=== PATIENT | male | born 1950 | race Caucasian/White ===

== ENCOUNTER → 2016-08-25 | Outpatient (CLI) | payer OTHER ==
[~2016-08-25] MED LIST: ASPI-482 PO; MULT-245 PO; OMEP20CA5 PO
--- NOTE | 2016-08-25 17:03 | RAD ---
Bilateral knees, 6 views, 08/25/2016: History: Chronic knee pain. There is patchy bony demineralization. There is mild marginal spurring at the knee joints, worse on the right. There is mild degenerative change at the right patellofemoral articulation. No acute fracture or dislocation is identified. There is a suggestion of a small right knee joint effusion. IMPRESSION: 1. Mild degenerative change, right greater than left. 2. No acute bony abnormality is detected. 3. Probable small right knee joint effusion
== END | disposition home or self-care (01) ==
LOC: DXRADRC 14:54
PROVIDERS: ATTEND General Practice
DX: M25.562 Pain in left knee (principal); X58.XXXA Exposure to other specified factors, initial encounter; Y93.89 Activity, other specified; Y92.89 Other specified places as the place of occurrence of the external cause; Y99.8 Other external cause status
CPT/HCPCS: 73562

== ENCOUNTER 2017-12-21 17:20 | Inpatient (IN) | payer MEDICARE, OTHER ==
[~2017-12-21] VITALS: Ht 185.4 cm; Wt 86.9 kg
[2017-12-21 18:35] VITALS: BP 101/69
[2017-12-21] MEDS ORDERED: MULT1TAB90 PO (19:40)
[2017-12-21] MEDS ORDERED: MELA3TAB2 PO (19:40)
[2017-12-21] MEDS ORDERED: FOLI1TAB16 PO (19:40)
[2017-12-21] MEDS ORDERED: TAMS0.4C2 PO (19:40)
[2017-12-21] MEDS ORDERED: METO50TA6 PO (19:40)
[2017-12-21] MEDS ORDERED: DILT120C80 PO (19:40)
[2017-12-21] MEDS ORDERED: THIA100T8 PO (19:40)
[2017-12-21] MEDS: TAMSULOSIN 0.4 MG CAP.ER.24H. PO SCH (20:24)
[2017-12-21] MEDS: METOPROLOL TART IMMED RELEASE 50 MG TABLET PO SCH (20:25)
[2017-12-21] MEDS: ACETAMINOPHEN 325 MG TABLET PO PRN (20:25)
[2017-12-21] MEDS: MELATONIN 3 MG TABLET PO PRN ×2 (20:25→23:18)
[2017-12-22 06:30] VITALS: BP_SYST 111; BP_SYST 116; BP_DIAS 64; BP_DIAS 78
[2017-12-22] MEDS: MULTIVITAMIN with MINERAL TABLET. PO SCH (08:43)
[2017-12-22] MEDS: THIAMINE 100 MG TABLET. PO SCH (08:43)
[2017-12-22] MEDS: PANTOPRAZOLE 40 MG TABLET. PO SCH (08:43)
[2017-12-22] MEDS: ASPIRIN ENTERIC COATED 81 MG TABLET.DR. PO SCH (08:44)
[2017-12-22] MEDS: METOPROLOL TART IMMED RELEASE 50 MG TABLET PO SCH ×2 (08:58→20:10)
[2017-12-22] MEDS: FOLIC ACID 1 MG TABLET PO SCH (08:58)
--- NOTE | 2017-12-22 13:01 | HP ---
ADMIT DATE: 12/21/2017 HISTORY OF PRESENT ILLNESS: The patient is a 67-year-old male patient who was transferred from [facility] to swing bed at [facility] to continue the process of rehabilitation. The patient was admitted to [facility] and he was found to have chronic atrial fibrillation with rapid ventricular response, gait unsteady and alcohol withdrawal symptoms. He was treated with a Cardizem drip and then switched to oral Cardizem, was treated with alcohol withdrawal protocol, and apparently, he has been complaining of weakness and marked deconditioning. It was felt that the patient would benefit from further rehabilitation and therefore he was transferred to [facility] swing bed to continue the process of rehabilitation. When I saw him today, he did complain that he has sciatica on the right side. It comes and goes. Also, has back pain, but denied any other complaint. He stated he is very weak and is unable to walk on his own, although at home according to his significant other, he was able to ambulate without assistance or assistive devices. PAST MEDICAL HISTORY: Significant for atrial fibrillation, coronary artery disease, hypertension. He is known to have seizures, gastroesophageal reflux disease, prostate cancer, alcohol addiction, osteoarthritis. He has also sciatica and Dupuytren's contracture of the left hand. PAST SURGICAL HISTORY: Significant for right-sided cataract extraction, tonsillectomy, lower back surgery, hemorrhoidectomy, prostatectomy, left medial meniscectomy and right meniscectomy x 2. FAMILY HISTORY: Positive for Alzheimer's disease and cancer. SOCIAL HISTORY: He lives with his significant other. He quit smoking; however, he continued to drink heavily. He drinks 1 pint of vodka per day. He does not use any drugs. REVIEW OF SYSTEMS: The patient denied any blurring of vision. He has right-sided cataract extraction, but denied any glaucoma or macular degeneration. Denied any earache, tinnitus, or sensorineural deafness. Denied any nosebleeds, stuffy nose, or postnasal drip. Denied any sore throat, sore tongue, toothache, hoarseness of voice, difficulty swallowing. Denied any nausea, vomiting, diarrhea, or constipation. Denied any hematemesis, melena, or hematochezia. Denied any dysuria, frequency, or hematuria. Denied any chest pain, shortness of breath, orthopnea, or paroxysmal nocturnal dyspnea. Denied any cough, phlegm, or hemoptysis. ALLERGIES: He has no known drug allergies. MEDICATIONS: He is currently on diltiazem CD 240 mg once a day, thiamine 100 mg once a day, Protonix 40 mg once a day, folic acid 1 mg once a day, aspirin 81 mg once a day, multivitamin 1 tablet once a day, metoprolol tartrate 50 mg twice a day, Flomax 0.4 mg at bedtime, melatonin 3 mg at bedtime, and Tylenol 650 mg every 6 hours. PHYSICAL EXAMINATION: GENERAL: When I examined him, he was sitting comfortably in his wheelchair, in no apparent distress. There was no pallor, jaundice, cyanosis, lymphadenopathy, or thyromegaly. No jugular venous distention. No limb edema. VITAL SIGNS: His heart rate was 86, blood pressure 116/76, his temperature was 97.9, respiratory rate was 18, and oxygen saturation was 94%. HEAD, EYES, EARS, NOSE, AND THROAT: Showed normocephalic, atraumatic. NECK: Supple. HEART: Showed normal first and second heart sounds with no gallop, rub, or murmur. CHEST: Clear to auscultation. No crepitation or rhonchi. ABDOMEN: Slightly distended, soft, nontender. No guarding or rigidity. No organomegaly. All hernial orifice intact. Bowel sounds normal. NEUROLOGIC: He was awake, alert, responding appropriately. All cranial nerves intact. He moves extremities without difficulty, although he is mostly bedbound, chair bound. IMPRESSION AND PLAN: The patient has no lab work available that was done here; however, we will basically continue with all his medication. Continue with physical and occupational therapy. I will order his lab works and make any necessary adjustments if deemed necessary. CURT WATSON MD DR: ELINOR/jesica JOB#: [id number] / [id number]
[2017-12-22] MEDS: LORazepam 0.5 MG TABLET PO PRN ×2 (17:25→21:50)
[2017-12-22 18:59] VITALS: BP 90/65
[2017-12-22] MEDS: ACETAMINOPHEN 325 MG TABLET PO PRN (20:10)
[2017-12-22] MEDS: MELATONIN 3 MG TABLET PO PRN ×2 (20:10→21:50)
[2017-12-22] MEDS: TAMSULOSIN 0.4 MG CAP.ER.24H. PO SCH (20:10)
--- NOTE | 2017-12-23 05:47 | RAD ---
EXAM: CT HEAD WITHOUT CONTRAST. HISTORY: Altered mental status. TECHNIQUE: Computed tomography of the head was performed without intravenous contrast. COMPARISON: None. FINDINGS: There is no intracranial hemorrhage. Hypoattenuation within the periventricular white matter indicates mild chronic microangiopathic change. Prominence of the lateral ventricles and hemispheric sulci indicates moderate atrophy. There is mild mucosal thickening in the right maxillary sinus. The orbits are unremarkable. The temporal bones are unremarkable. The calvarium reveals no suspicious lesions. IMPRESSION: 1. No acute intracranial findings. 2. Moderate atrophy and mild chronic microangiopathic white matter change. *One or more of the following individualized dose reduction techniques were utilized for this examination: 1. Automated exposure control. 2. Adjustment of the mA and/or kV according to patient size. 3. Use of iterative reconstruction technique. Electronically signed by: Ada Miller MD (12/23/2017 5:43 AM) [id number]
[2017-12-23 06:17] VITALS: BP 93/64
[2017-12-23 07:25] LABS: HEMATOCRIT 41.5 % (39.0-53.0); RED BLOOD COUNT 3.96 x10^6/uL (4.30-5.70); RED CELL DISTRIBUTION WIDTH 14.3 % (11.5-14.5); WHITE BLOOD COUNT 4.3 x10^3/uL (4.0-11.0)
[2017-12-23 07:42] LABS: ALBUMIN 3.4 g/dL (3.4-5.0); ALBUMIN/GLOBULIN RATIO 0.9 (1.0-1.7); CALCIUM 9.6 mg/dL (8.5-10.1); CREATININE 1.1 mg/dL (0.7-1.3); GFR 66.8; MAGNESIUM 1.8 mg/dL (1.8-2.4); POTASSIUM 3.6 mmol/L (3.5-5.1)
[2017-12-23] MEDS: FOLIC ACID 1 MG TABLET PO SCH (08:06)
[2017-12-23] MEDS: MULTIVITAMIN with MINERAL TABLET. PO SCH (08:06)
[2017-12-23] MEDS: THIAMINE 100 MG TABLET. PO SCH (08:07)
[2017-12-23] MEDS: LORazepam 0.5 MG TABLET PO PRN (08:08)
[2017-12-23] MEDS: PANTOPRAZOLE 40 MG TABLET. PO SCH (08:08)
[2017-12-23] MEDS: ASPIRIN ENTERIC COATED 81 MG TABLET.DR. PO SCH (08:08)
[2017-12-23] MEDS: METOPROLOL TART IMMED RELEASE 50 MG TABLET PO SCH ×2 (08:18→20:57)
[2017-12-23 18:28] VITALS: BP 108/74
--- NOTE | 2017-12-23 20:27 | PDOC ---
Exam Note: Jerome Note: Please also refer to the separate dictated note~for this date of service dictated separately.~Patient seen individually. Discussed the patient with Nursing staff reviewed the chart.~Reviewed interim history and current functioning. Reviewed vital signs,~Labs/ Radiology~and current medications noted below. Continue current treatment with the changes noted in the dictated addendum note.Late entry for Dec Assessment: Vital Signs: VS - Last 72 Hours, by Label Date Time Temp Pulse Resp B/P (MAP) Pulse Ox O2 Delivery O2 Flow Rate FiO2 12/23/17 20:00 Room Air 12/23/17 18:28 97.9 110 20 108/74 (85) 97 Room Air 12/23/17 08:18 76 104/70 12/23/17 08:12 76 104/70 12/23/17 08:00 Room Air 12/23/17 06:17 85 20 93/64 (74) 99 Room Air 12/22/17 20:10 71 90/65 12/22/17 19:50 Room Air 12/22/17 18:59 97.5 71 20 90/65 (73) 99 Room Air 12/22/17 14:36 86 116/78 12/22/17 08:58 86 116/78 12/22/17 08:00 Room Air 12/22/17 06:30 97.9 86 18 116/78 (91) 94 Room Air 12/21/17 20:25 83 101/69 12/21/17 20:00 Room Air 12/21/17 18:35 97.9 83 20 101/69 (80) 99 Room Air Vital Signs Date Time Temp Pulse Resp B/P (MAP) Pulse Ox O2 Delivery O2 Flow Rate FiO2 12/23/17 20:00 Room Air 12/23/17 18:28 97.9 110 20 108/74 (85) 97 I&O Intake and Output 12/23/17 07:00 Intake Total 1220 ml Output Total 1 ml Balance 1219 ml Intake Oral 1220 ml Output Urine Total 1 ml # Voids 3 Labs: Laboratory Tests Test 12/23/17 07:11 White Blood Count 4.3 x10^3/uL (4.0-11.0) Red Blood Count 3.96 x10^6/uL (4.30-5.70) L Hemoglobin 14.0 g/dL (13.0-17.5) Hematocrit 41.5 % (39.0-53.0) Mean Corpuscular Volume 105 fL (79-100) H Mean Corpuscular Hemoglobin 35 pg (25-35) Mean Corpuscular Hemoglobin Concent 34 g/dL (31-37) Red Cell Distribution Width 14.3 % (11.5-14.5) Platelet Count 226 x10^3/uL (140-400) Sodium Level 137 mmol/L (136-145) Potassium Level 3.6 mmol/L (3.5-5.1) Chloride Level 102 mmol/L (98-107) Carbon Dioxide Level 27 mmol/L (21-32) Anion Gap 8 (6-14) Blood Urea Nitrogen 16 mg/dL (8-26) Creatinine 1.1 mg/dL (0.7-1.3) Estimated GFR (Cockcroft-Gault) 66.8 BUN/Creatinine Ratio 15 (6-20) Glucose Level 119 mg/dL (70-99) H Calcium Level 9.6 mg/dL (8.5-10.1) Magnesium Level 1.8 mg/dL (1.8-2.4) Total Bilirubin 1.0 mg/dL (0.2-1.0) Aspartate Amino Transferase (AST) 27 U/L (15-37) Alanine Aminotransferase (ALT) 45 U/L (16-63) Alkaline Phosphatase 74 U/L (46-116) Total Protein 7.0 g/dL (6.4-8.2) Albumin 3.4 g/dL (3.4-5.0) Albumin/Globulin Ratio 0.9 (1.0-1.7) L Thyroid Stimulating Hormone (TSH) 2.128 uIU/mL (0.358-3.740) Current Medications: Meds: Current Medications Diltiazem HCl (Cardizem 24hr Cd) 240 mg DAILYWLUN PO Last administered on at 08:12; Start 12/22/17 at 12:00 Multivitamins/ Calcium (Thera-M Plus) 1 tab DAILY PO Last administered on at 08:06; Start 12/22/17 at 09:00 Tamsulosin HCl (Flomax) 0.4 mg QHS PO Last administered on 12/22/17at 20:10; Start 12/21/17 at 21:00 Aspirin (Aspirin Enteric Coated) 81 mg DAILY PO Last administered on 12/23/17at 08:08; Start 12/22/17 at 09:00 Folic Acid (Folic Acid) 1 mg DAILY PO Last administered on 12/23/17at 08:06; Start 12/22/17 at 09:00 Melatonin 3 mg PRN QHS PRN PO INSOMNIA, MAY REPEAT X1 Last administered on 12/22at 21:50; Start 12/21/17 at 20:00 Metoprolol Tartrate (Lopressor) 50 mg BID PO Last administered on 12/22/17at 08: 58; Start 12/21/17 at 21:00 Pantoprazole Sodium (Protonix) 40 mg DAILY PO Last administered on 12/23/17at 08 :08; Start 12/22/17 at 09:00 Thiamine HCl (Vitamin B-1) 100 mg DAILY PO Last administered on 12/23/17at 08:07 ; Start 12/22/17 at 09:00 Acetaminophen (Tylenol) 650 mg PRN Q6HRS PRN PO PAIN / TEMP Last administered on 12/22/17at 20:10; Start 12/21/17 at 20:15 Lorazepam (Ativan) 0.5 mg PRN Q4HRS PRN PO ANXIETY / AGITATION Last administered on 12/23/17at 08:08; Start 12/22/17 at 17:00 Active Scripts Active Reported Melatonin 3 Mg Tablet 3 Mg PO PRN QHS PRN Diltiazem 24HR Cd (Diltiazem Hcl) 120 Mg Cap.er.24h 240 Mg PO DAILYWLUN Thiamine Hcl 100 Mg Tablet 100 Mg PO DAILY Tamsulosin Hcl 0.4 Mg Cap.er.24h 0.4 Mg PO QHS Thera-M Tablet (Multivits,Ca,Minerals/Iron/Fa) 1 Each Tablet 1 Each PO DAILY Metoprolol Tartrate 50 Mg Tablet 50 Mg PO BID Folic Acid 1 Mg Tablet 1 Mg PO DAILY Aspir 81 (Aspirin) 81 Mg Tablet.dr 1 Tab PO DAILY Prilosec (Omeprazole) 20 Mg Capsule.dr 1 Cap PO DAILY I have reviewed the current psychotropics carefully including drug interactions. Risk benefit ratio favors no change other than as noted in my dictated progress note. Diagnosis: Problems: (1) Alcohol dependence (2) Alcohol withdrawal with delirium in inpatient treatment (3) Alcohol-induced persisting dementia (4) Dementia associated with alcoholism with behavioral disturbance (5) Major depressive disorder, recurrent episode KENNETH CANNON MD Dec 23, 2017 20:27
--- NOTE | 2017-12-23 20:28 | PDOC ---
Exam Note: Jerome Note: Please also refer to the separate dictated note~for this date of service dictated separately.~Patient seen individually. Discussed the patient with Nursing staff reviewed the chart.~Reviewed interim history and current functioning. Reviewed vital signs,~Labs/ Radiology~and current medications noted below. Continue current treatment with the changes noted in the dictated addendum note Assessment: Vital Signs: Vital Signs Date Time Temp Pulse Resp B/P (MAP) Pulse Ox O2 Delivery O2 Flow Rate FiO2 12/23/17 20:00 Room Air 12/23/17 18:28 97.9 110 20 108/74 (85) 97 I&O Intake and Output 12/23/17 07:00 Intake Total 1220 ml Output Total 1 ml Balance 1219 ml Intake Oral 1220 ml Output Urine Total 1 ml # Voids 3 Labs: Laboratory Tests Test 12/23/17 07:11 White Blood Count 4.3 x10^3/uL (4.0-11.0) Red Blood Count 3.96 x10^6/uL (4.30-5.70) L Hemoglobin 14.0 g/dL (13.0-17.5) Hematocrit 41.5 % (39.0-53.0) Mean Corpuscular Volume 105 fL (79-100) H Mean Corpuscular Hemoglobin 35 pg (25-35) Mean Corpuscular Hemoglobin Concent 34 g/dL (31-37) Red Cell Distribution Width 14.3 % (11.5-14.5) Platelet Count 226 x10^3/uL (140-400) Sodium Level 137 mmol/L (136-145) Potassium Level 3.6 mmol/L (3.5-5.1) Chloride Level 102 mmol/L (98-107) Carbon Dioxide Level 27 mmol/L (21-32) Anion Gap 8 (6-14) Blood Urea Nitrogen 16 mg/dL (8-26) Creatinine 1.1 mg/dL (0.7-1.3) Estimated GFR (Cockcroft-Gault) 66.8 BUN/Creatinine Ratio 15 (6-20) Glucose Level 119 mg/dL (70-99) H Calcium Level 9.6 mg/dL (8.5-10.1) Magnesium Level 1.8 mg/dL (1.8-2.4) Total Bilirubin 1.0 mg/dL (0.2-1.0) Aspartate Amino Transferase (AST) 27 U/L (15-37) Alanine Aminotransferase (ALT) 45 U/L (16-63) Alkaline Phosphatase 74 U/L (46-116) Total Protein 7.0 g/dL (6.4-8.2) Albumin 3.4 g/dL (3.4-5.0) Albumin/Globulin Ratio 0.9 (1.0-1.7) L Thyroid Stimulating Hormone (TSH) 2.128 uIU/mL (0.358-3.740) Current Medications: Meds: Current Medications Diltiazem HCl (Cardizem 24hr Cd) 240 mg DAILYWLUN PO Last administered on 08:12; Start 12/22/17 at 12:00 Multivitamins/ Calcium (Thera-M Plus) 1 tab DAILY PO Last administered on 08:06; Start 12/22/17 at 09:00 Tamsulosin HCl (Flomax) 0.4 mg QHS PO Last administered on 12/22/17 20:10; Start 12/21/17 at 21:00 Aspirin (Aspirin Enteric Coated) 81 mg DAILY PO Last administered on 12/23/17 08:08; Start 12/22/17 at 09:00 Folic Acid (Folic Acid) 1 mg DAILY PO Last administered on 12/23/17 08:06; Start 12/22/17 at 09:00 Melatonin 3 mg PRN QHS PRN PO INSOMNIA, MAY REPEAT X1 Last administered on 12/22at 21:50; Start 12/21/17 at 20:00 Metoprolol Tartrate (Lopressor) 50 mg BID PO Last administered on 12/22/17 08: 58; Start 12/21/17 at 21:00 Pantoprazole Sodium (Protonix) 40 mg DAILY PO Last administered on 12/23/17 08 :08; Start 12/22/17 at 09:00 Thiamine HCl (Vitamin B-1) 100 mg DAILY PO Last administered on 12/23/17 08:07 ; Start 12/22/17 at 09:00 Acetaminophen (Tylenol) 650 mg PRN Q6HRS PRN PO PAIN / TEMP Last administered on 12/22/17 20:10; Start 12/21/17 at 20:15 Lorazepam (Ativan) 0.5 mg PRN Q4HRS PRN PO ANXIETY / AGITATION Last administered on 12/23/17at 08:08; Start 12/22/17 at 17:00 Active Scripts Active Reported Melatonin 3 Mg Tablet 3 Mg PO PRN QHS PRN Diltiazem 24HR Cd (Diltiazem Hcl) 120 Mg Cap.er.24h 240 Mg PO DAILYWLUN Thiamine Hcl 100 Mg Tablet 100 Mg PO DAILY Tamsulosin Hcl 0.4 Mg Cap.er.24h 0.4 Mg PO QHS Thera-M Tablet (Multivits,Ca,Minerals/Iron/Fa) 1 Each Tablet 1 Each PO DAILY Metoprolol Tartrate 50 Mg Tablet 50 Mg PO BID Folic Acid 1 Mg Tablet 1 Mg PO DAILY Aspir 81 (Aspirin) 81 Mg Tablet.dr 1 Tab PO DAILY Prilosec (Omeprazole) 20 Mg Capsule.dr 1 Cap PO DAILY I have reviewed the current psychotropics carefully including drug interactions. Risk benefit ratio favors no change other than as noted in my dictated progress note. Diagnosis: Problems: (1) Dementia associated with alcoholism with behavioral disturbance (2) Alcohol withdrawal with delirium in inpatient treatment (3) Major depressive disorder, recurrent episode (4) Alcohol dependence (5) Alcohol-induced persisting dementia KENNETH CANNON MD Dec 23, 2017 20:28
[2017-12-23] MEDS: TAMSULOSIN 0.4 MG CAP.ER.24H. PO SCH (20:57)
--- NOTE | 2017-12-23 23:30 | CONS ---
DATE OF CONSULTATION: 12/22/2017 PSYCHIATRIC CONSULTATION This late entry for 12/22/2017 covers elements not covered in my initial note of 12/22/2017. I met with the patient evening of 12/22/2017. IDENTIFYING DATA: The patient is a 67-year-old male seen in the Skilled Unit, referred by Dr. Mensah on account of his memory deficits, status post alcohol dependence and alcohol withdrawal, which he completed at [facility]. The patient has had some memory deficits as well. SUBJECTIVE: I met with the patient in his room. I also met with his girlfriend, who accompanied him. CHIEF COMPLAINT: "I have been drinking about 1 pint of hard liquor every day. Yes, I am getting forgetful. Sometimes, I get depressed. I want to stop using alcohol." HISTORY OF PRESENT ILLNESS: This patient is transferred to the skilled unit from [facility] to continue his rehabilitation. He was initially admitted to [facility], found to have chronic atrial fibrillation with rapid ventricular response along with alcohol withdrawal symptoms and an unsteady gait. He was on Cardizem drip and then switched to oral Cardizem, treated on the alcohol withdrawal protocol. He admits to some short-term memory deficits, but seems to minimize this. He also admits to some depressive symptoms. No suicidal or homicidal ideation. No clear psychotic symptoms. No clear symptoms of bipolar disorder. PAST PSYCHIATRIC HISTORY: Positive for his alcohol abuse and he has had alcohol rehab in the past, but apparently has not been on Antabuse or Acamprosate or naltrexone. PAST MEDICAL HISTORY: Chronic atrial fibrillation, coronary artery disease, hypertension, seizure disorder, GERD, prostate cancer, osteoarthritis, history of sciatica, Dupuytren's contracture, left hand. PAST SURGICAL HISTORY: Significant for right-sided cataract extraction, tonsillectomy, lower back surgery, hemorrhoidectomy, prostatectomy, left medial meniscectomy, right meniscectomy x 2. FAMILY HISTORY: Positive for Alzheimer's disease and cancer. SOCIAL HISTORY: The patient lives with his significant other. He quit smoking; however, continues to drink heavily. He drinks 1 pint of vodka a day, does not use any drugs. MENTAL STATUS EXAMINATION: The patient is oriented to himself and situation. He is aware of the year, but confused about the date, was aware of the month, able to spell world forward and backward, no errors, able to do one step on serial sevens and no more. Speech is coherent. He is in a wheelchair. Mood is dysphoric, anxious. Affect is mood congruent. No active psychotic symptoms, suicidal or homicidal ideation. 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 Rest as above. PLAN: From a psychiatric standpoint, I would not change anything at this stage. The patient remains on melatonin 3 mg at bedtime, thiamine 100 mg a day from a psychiatric standpoint given his alcohol abuse history. Discussed using naltrexone for reducing his alcohol craving and he is willing to consider this. The patient has not had a CT head and we will go ahead and request that as well. Dr. Mensah, thank you for the opportunity to participate in your patient's care. We will follow with you. MAN Martín CANNON MD DR: PRUDENCE/jesica JOB#: [id number] / [id number]
[2017-12-24 06:28] VITALS: BP 120/86
--- NOTE | 2017-12-24 08:26 | PN ---
DATE: 12/23/2017 PSYCHIATRIC PROGRESS NOTE This is a late entry 12/23/2017 covers elements not covered in my initial note. SUBJECTIVE: I met with the patient in the evening. Overall, per nursing report, the patient has been fairly appropriate. He has short-term memory deficits. CT head shows microangiopathy and cortical atrophy, probably reflective of his vascular changes intracranially compounded by the alcohol. I had a lengthy discussion with the patient about his alcohol usage. He states he wants to abstain from alcohol and is wanting to start naltrexone, which we will initiate at 25 mg a day. REVIEW OF SYSTEMS: Ambulation impaired. No CV, , pulmonary, eye, ENT system symptoms on review. MENTAL STATUS EXAM: Oriented to himself and situation. Speech is coherent, and I came back twice to visit with the patient at his request as he had further questions about the naltrexone, about the CT head changes and about his memory deficits. Abstraction fair, computations still able to do only one step on serial sevens, but able to spell world forward and backward, no errors. Attention span short. Language function intact. IMPRESSION: Alcohol dependence, status post alcohol withdrawal; cognitive disorder, unspecified; depressive disorder, unspecified. PLAN: From a psychiatric standpoint, we will initiate naltrexone 25 mg a day to help with his alcohol craving and may be increased later to 50 mg a day as an outpatient. Discussed pros and cons of this with him at length. He understands and consents. MAN Martín CANNON MD DR: PRUDENCE/jesica JOB#: [id number] / [id number]
[2017-12-24] MEDS: PANTOPRAZOLE 40 MG TABLET. PO SCH (08:37)
[2017-12-24] MEDS: ASPIRIN ENTERIC COATED 81 MG TABLET.DR. PO SCH (08:37)
[2017-12-24] MEDS: MULTIVITAMIN with MINERAL TABLET. PO SCH (08:37)
[2017-12-24] MEDS: THIAMINE 100 MG TABLET. PO SCH (08:37)
[2017-12-24] MEDS: FOLIC ACID 1 MG TABLET PO SCH (08:37)
[2017-12-24] MEDS: METOPROLOL TART IMMED RELEASE 50 MG TABLET PO SCH ×2 (08:37→21:42)
[2017-12-24 12:42] VITALS: BP 99/66
[2017-12-24 14:37] VITALS: BP 121/84
[2017-12-24] MEDS: LORazepam 0.5 MG TABLET PO PRN ×2 (14:49→21:42)
[2017-12-24 18:22] VITALS: BP 91/58
--- NOTE | 2017-12-24 20:41 | PDOC ---
Exam Note: Jerome Note: Please also refer to the separate dictated note~for this date of service dictated separately.~Patient seen individually. Discussed the patient with Nursing staff reviewed the chart.~Reviewed interim history and current functioning. Reviewed vital signs,~Labs/ Radiology~and current medications noted below. Continue current treatment with the changes noted in the dictated addendum note Assessment: Vital Signs: Vital Signs Date Time Temp Pulse Resp B/P (MAP) Pulse Ox O2 Delivery O2 Flow Rate FiO2 12/24/17 19:50 Room Air 12/24/17 18:22 97.9 93 20 91/58 (69) 96 I&O Intake and Output 12/24/17 07:00 Intake Total 1140 ml Output Total 1 ml Balance 1139 ml Intake Oral 1140 ml Output Urine Total 1 ml # Voids 3 # Bowel Movements 1 Current Medications: Meds: Current Medications Diltiazem HCl (Cardizem 24hr Cd) 240 mg DAILYWLUN PO Last administered on 14:41; Start 12/22/17 at 12:00 Multivitamins/ Calcium (Thera-M Plus) 1 tab DAILY PO Last administered on 08:37; Start 12/22/17 at 09:00 Tamsulosin HCl (Flomax) 0.4 mg QHS PO Last administered on 12/23/17 20:57; Start 12/21/17 at 21:00 Aspirin (Aspirin Enteric Coated) 81 mg DAILY PO Last administered on 12/24/17 08:37; Start 12/22/17 at 09:00 Folic Acid (Folic Acid) 1 mg DAILY PO Last administered on 12/24/17 08:37; Start 12/22/17 at 09:00 Melatonin 3 mg PRN QHS PRN PO INSOMNIA, MAY REPEAT X1 Last administered on 12/22 21:50; Start 12/21/17 at 20:00 Metoprolol Tartrate (Lopressor) 50 mg BID PO Last administered on 12/24/17 08: 37; Start 12/21/17 at 21:00 Pantoprazole Sodium (Protonix) 40 mg DAILY PO Last administered on 12/24/17 08 :37; Start 12/22/17 at 09:00 Thiamine HCl (Vitamin B-1) 100 mg DAILY PO Last administered on 8/12/18at 08:37 ; Start 12/22/17 at 09:00 Acetaminophen (Tylenol) 650 mg PRN Q6HRS PRN PO PAIN / TEMP Last administered on 12/22/17at 20:10; Start 12/21/17 at 20:15 Lorazepam (Ativan) 0.5 mg PRN Q4HRS PRN PO ANXIETY / AGITATION Last administered on 12/24/17at 14:49; Start 12/22/17 at 17:00 Active Scripts Active Reported Melatonin 3 Mg Tablet 3 Mg PO PRN QHS PRN Diltiazem 24HR Cd (Diltiazem Hcl) 120 Mg Cap.er.24h 240 Mg PO DAILYWLUN Thiamine Hcl 100 Mg Tablet 100 Mg PO DAILY Tamsulosin Hcl 0.4 Mg Cap.er.24h 0.4 Mg PO QHS Thera-M Tablet (Multivits,Ca,Minerals/Iron/Fa) 1 Each Tablet 1 Each PO DAILY Metoprolol Tartrate 50 Mg Tablet 50 Mg PO BID Folic Acid 1 Mg Tablet 1 Mg PO DAILY Aspir 81 (Aspirin) 81 Mg Tablet.dr 1 Tab PO DAILY Prilosec (Omeprazole) 20 Mg Capsule.dr 1 Cap PO DAILY I have reviewed the current psychotropics carefully including drug interactions. Risk benefit ratio favors no change other than as noted in my dictated progress note. Diagnosis: Problems: (1) Dementia associated with alcoholism with behavioral disturbance (2) Alcohol withdrawal with delirium in inpatient treatment (3) Major depressive disorder, recurrent episode (4) Alcohol dependence (5) Alcohol-induced persisting dementia KENNETH CANNON MD Dec 24, 2017 20:41
[2017-12-24] MEDS: MELATONIN 3 MG TABLET PO PRN (21:41)
[2017-12-24] MEDS: TAMSULOSIN 0.4 MG CAP.ER.24H. PO SCH (21:45)
[2017-12-25 06:23] VITALS: BP_SYST 92; BP_DIAS 53; BP_DIAS 54
[2017-12-25] MEDS: THIAMINE 100 MG TABLET. PO SCH (08:43)
[2017-12-25] MEDS: PANTOPRAZOLE 40 MG TABLET. PO SCH (08:44)
[2017-12-25] MEDS: ASPIRIN ENTERIC COATED 81 MG TABLET.DR. PO SCH (08:44)
[2017-12-25] MEDS: FOLIC ACID 1 MG TABLET PO SCH (08:44)
[2017-12-25] MEDS: MULTIVITAMIN with MINERAL TABLET. PO SCH (08:44)
[2017-12-25] MEDS: METOPROLOL TART IMMED RELEASE 50 MG TABLET PO SCH (09:00)
[2017-12-25 11:26] VITALS: BP 106/72
[2017-12-25 12:11] VITALS: BP 106/72
--- NOTE | 2017-12-25 16:00 | PDOC3 ---
Discharge Summary Brief Hospital Course Allergies Allergies Coded Allergies Type Severity Reaction Last Updated Verified No Known Drug Allergies 07/08/14 No Vital Signs Vital Signs Date Time Temp Pulse Resp B/P (MAP) Pulse Ox O2 Delivery O2 Flow Rate FiO2 12/25/17 12:11 85 106/72 12/25/17 11:26 97.9 18 98 Room Air Brief Hospital Course Mr. Miranda is a 67 old [sex] who presented with [ ] Discharge Information Dischare Medications Current Medications Diltiazem HCl (Cardizem 24hr Cd) 240 mg DAILYWLUN PO Last administered on 12:11; Start 12/22/17 at 12:00 Multivitamins/ Calcium (Thera-M Plus) 1 tab DAILY PO Last administered on 08:44; Start 12/22/17 at 09:00 Tamsulosin HCl (Flomax) 0.4 mg QHS PO Last administered on 12/24/17 21:45; Start 12/21/17 at 21:00 Aspirin (Aspirin Enteric Coated) 81 mg DAILY PO Last administered on 12/25/17 08:44; Start 12/22/17 at 09:00 Folic Acid (Folic Acid) 1 mg DAILY PO Last administered on 12/25/17 08:44; Start 12/22/17 at 09:00 Melatonin 3 mg PRN QHS PRN PO INSOMNIA, MAY REPEAT X1 Last administered on 12/24 21:41; Start 12/21/17 at 20:00 Metoprolol Tartrate (Lopressor) 50 mg BID PO Last administered on 12/24/17 21: 42; Start 12/21/17 at 21:00 Pantoprazole Sodium (Protonix) 40 mg DAILY PO Last administered on 12/25/17 08 :44; Start 12/22/17 at 09:00 Thiamine HCl (Vitamin B-1) 100 mg DAILY PO Last administered on 12/25/17 08:43 ; Start 12/22/17 at 09:00 Acetaminophen (Tylenol) 650 mg PRN Q6HRS PRN PO PAIN / TEMP Last administered on 12/22/17 20:10; Start 12/21/17 at 20:15 Lorazepam (Ativan) 0.5 mg PRN Q4HRS PRN PO ANXIETY / AGITATION Last administered on 8/12/18at 21:42; Start 12/22/17 at 17:00 Active Scripts Active Reported Melatonin 3 Mg Tablet 3 Mg PO PRN QHS PRN Diltiazem 24HR Cd (Diltiazem Hcl) 120 Mg Cap.er.24h 240 Mg PO DAILYWLUN Thiamine Hcl 100 Mg Tablet 100 Mg PO DAILY Tamsulosin Hcl 0.4 Mg Cap.er.24h 0.4 Mg PO QHS Thera-M Tablet (Multivits,Ca,Minerals/Iron/Fa) 1 Each Tablet 1 Each PO DAILY Metoprolol Tartrate 50 Mg Tablet 50 Mg PO BID Folic Acid 1 Mg Tablet 1 Mg PO DAILY Aspir 81 (Aspirin) 81 Mg Tablet.dr 1 Tab PO DAILY Prilosec (Omeprazole) 20 Mg Capsule.dr 1 Cap PO DAILY JALEEL ROGERS DO Dec 25, 2017 16:00
--- NOTE | 2017-12-25 17:59 | PDOC ---
Exam Note: Jerome Note: Please also refer to the separate dictated note~for this date of service dictated separately.~Patient seen individually. Discussed the patient with Nursing staff reviewed the chart.~Reviewed interim history and current functioning. Reviewed vital signs,~Labs/ Radiology~and current medications noted below. Continue current treatment with the changes noted in the dictated addendum note Assessment: Vital Signs: Vital Signs Date Time Temp Pulse Resp B/P (MAP) Pulse Ox O2 Delivery O2 Flow Rate FiO2 12/25/17 12:11 85 106/72 12/25/17 11:26 97.9 18 98 Room Air I&O Intake and Output 12/25/17 06:59 Intake Total 2120 ml Balance 2120 ml Intake Oral 2120 ml # Voids 11 Current Medications: Meds: Current Medications Diltiazem HCl (Cardizem 24hr Cd) 240 mg DAILYWLUN PO Last administered on 12:11; Start 12/22/17 at 12:00 Multivitamins/ Calcium (Thera-M Plus) 1 tab DAILY PO Last administered on 08:44; Start 12/22/17 at 09:00 Tamsulosin HCl (Flomax) 0.4 mg QHS PO Last administered on 12/24/17 21:45; Start 12/21/17 at 21:00 Aspirin (Aspirin Enteric Coated) 81 mg DAILY PO Last administered on 12/25/17 08:44; Start 12/22/17 at 09:00 Folic Acid (Folic Acid) 1 mg DAILY PO Last administered on 12/25/17 08:44; Start 12/22/17 at 09:00 Melatonin 3 mg PRN QHS PRN PO INSOMNIA, MAY REPEAT X1 Last administered on 12/24 21:41; Start 12/21/17 at 20:00 Metoprolol Tartrate (Lopressor) 50 mg BID PO Last administered on 12/24/17 21: 42; Start 12/21/17 at 21:00 Pantoprazole Sodium (Protonix) 40 mg DAILY PO Last administered on 12/25/17 08 :44; Start 12/22/17 at 09:00 Thiamine HCl (Vitamin B-1) 100 mg DAILY PO Last administered on 12/25/17 08:43 ; Start 12/22/17 at 09:00 Acetaminophen (Tylenol) 650 mg PRN Q6HRS PRN PO PAIN / TEMP Last administered on 12/22/17at 20:10; Start 12/21/17 at 20:15 Lorazepam (Ativan) 0.5 mg PRN Q4HRS PRN PO ANXIETY / AGITATION Last administered on 12/24/17at 21:42; Start 12/22/17 at 17:00 Active Scripts Active Reported Melatonin 3 Mg Tablet 3 Mg PO PRN QHS PRN NEXT DOSE DUE: DATE:TODAY TIME:BEDTIME IF NEEDED. Diltiazem 24HR Cd (Diltiazem Hcl) 120 Mg Cap.er.24h 240 Mg PO DAILYWLUN LAST DOSE GIVEN: DATE:TODAY TIME:LUNCH NEXT DOSE DUE: DATE:TOMORROW TIME:LUNCH Thiamine Hcl 100 Mg Tablet 100 Mg PO DAILY LAST DOSE GIVEN: DATE: TIME:MORNING NEXT DOSE DUE: DATE:TOMORROW TIME:MORNING Tamsulosin Hcl 0.4 Mg Cap.er.24h 0.4 Mg PO QHS LAST DOSE GIVEN: DATE:TER TIME:BEDTIME NEXT DOSE DUE: DATE:TODAY TIME:BEDTIME Thera-M Tablet (Multivits,Ca,Minerals/Iron/Fa) 1 Each Tablet 1 Each PO DAILY LAST DOSE GIVEN: DATE: TIME:MORNING NEXT DOSE DUE: DATE:TOMORROW TIME:MORNING Metoprolol Tartrate 50 Mg Tablet 50 Mg PO BID MEDICATION HELD THIS MORNING NEXT DOSE DUE: DATE: TIME:EVENING IF SYSTOLIC BP (TOP NUMBER) GREATER THAN 100 AND PULSE GREATER THAN 60. Folic Acid 1 Mg Tablet 1 Mg PO DAILY LAST DOSE GIVEN: DATE:TODAY TIME:MORNING NEXT DOSE DUE: DATE:TOMORROW TIME:MORNING Aspir 81 (Aspirin) 81 Mg Tablet.dr 1 Tab PO DAILY LAST DOSE GIVEN: DATE:TODAY TIME:MORNING NEXT DOSE DUE: DATE:TOMORROW TIME:MORNING Prilosec (Omeprazole) 20 Mg Capsule.dr 1 Cap PO DAILY LAST DOSE GIVEN: DATE:TODAY TIME:MORNING NEXT DOSE DUE: DATE:TOMORROW TIME:MORNING I have reviewed the current psychotropics carefully including drug interactions. Risk benefit ratio favors no change other than as noted in my dictated progress note. Diagnosis: Problems: (1) Dementia associated with alcoholism with behavioral disturbance (2) Alcohol withdrawal with delirium in inpatient treatment (3) Major depressive disorder, recurrent episode (4) Alcohol dependence (5) Alcohol-induced persisting dementia KENNETH CANNON MD Dec 25, 2017 17:59
--- NOTE | 2017-12-25 22:46 | PN ---
DATE: 12/24/2017 PSYCHIATRIC PROGRESS NOTE This is a late entry, 12/24, covers elements not covered in my initial note 12/24. SUBJECTIVE: I met with the patient in the evening. The patient remains somewhat confused, more so in the evening, was demanding to leave, stating his girlfriend was coming to take him, he needed to go out for half an hour to get some jobs done and then he will be back. I reassured him he was in the hospital, not ready to leave the hospital just yet. He is able to relate that he wants to stay off the alcohol. REVIEW OF SYSTEMS: No CV, , pulmonary, eye system symptoms on review. MENTAL STATUS EXAM: Oriented to himself and situation. Speech is coherent, abstraction fair, computation impaired. Attention span short. Short term memory is impaired. No suicidal or homicidal ideation. LABORATORY DATA: Reviewed. IMPRESSION: Unchanged from initial note. PLAN: Start naltrexone 25 mg a day to reduce the alcohol cravings, no further change from a psychiatric standpoint. MAN Martín CANNON MD DR: PRUDENCE/jesica JOB#: [id number] / [id number]
[2017-12-26] MEDS ORDERED: NALTREXONE HCL 50 MG TABLET PO SCH (10:00)
== END 2017-12-25 17:00 | disposition home or self-care (01) | DRG 92 ==
LOC: LND 18:19
PROVIDERS: ADMIT Internal Medicine; ATTEND Internal Medicine
DX: R26.81 Unsteadiness on feet (principal); F10.231 Alcohol dependence with withdrawal delirium; F10.27 Alcohol dependence with alcohol-induced persisting dementia; F33.9 Major depressive disorder, recurrent, unspecified; F01.50 Vascular dementia, unspecified severity, without behavioral disturbance, psychotic disturbance, mood disturbance, and anxiety; G40.909 Epilepsy, unspecified, not intractable, without status epilepticus; I10 Essential (primary) hypertension; I25.10 Atherosclerotic heart disease of native coronary artery without angina pectoris; I48.2 Chronic atrial fibrillation; F41.9 Anxiety disorder, unspecified; G47.00 Insomnia, unspecified; M19.90 Unspecified osteoarthritis, unspecified site; I73.9 Peripheral vascular disease, unspecified; K21.9 Gastro-esophageal reflux disease without esophagitis; M54.31 Sciatica, right side; Z79.82 Long term (current) use of aspirin; Z79.899 Other long term (current) drug therapy; Z82.0 Family history of epilepsy and other diseases of the nervous system; Z85.46 Personal history of malignant neoplasm of prostate; Z87.891 Personal history of nicotine dependence; Z90.49 Acquired absence of other specified parts of digestive tract
CPT/HCPCS: 36415; 70450; 80053; 83735; 84443; 85027; 97110; 97112; 97116; 97530

== ENCOUNTER → 2018-05-18 | Outpatient (CLI) | payer OTHER ==
[~2018-05-18] MED LIST changes: +DILT120C85 PO; +FOLI1TAB16 PO; +MELA3TAB2 PO; +METO50TA6 PO; +MULT1TAB90 PO; +TAMS0.4C2 PO; +THIA100T8 PO
--- NOTE | 2018-05-18 16:22 | RAD ---
Two-view left great toe 05/18/2018 CLINICAL INDICATION: Pain and drainage from the left great toe nail. COMPARISON: None. FINDINGS: AP view of the foot and lateral view of the 1st toe. No acute fracture or traumatic malalignment. Mild IP osteoarthritis with joint space narrowing and subchondral sclerosis. Visualized soft tissues are unremarkable. Incidental note is made of a bipartite medial 1st MTP sesamoid. Vascular calcifications about the foot. IMPRESSION: No acute osseous abnormality extension to the 1st toe. Electronically signed by: Chandana Man MD (05/18/2018 4:18 PM) [id number]
== END | disposition home or self-care (01) ==
LOC: RAD 10:27
DX: M79.675 Pain in left toe(s) (principal); M19.072 Primary osteoarthritis, left ankle and foot; R22.42 Localized swelling, mass and lump, left lower limb
CPT/HCPCS: 73660